=== PATIENT | female | born 1985 | race Caucasian/White ===

== ENCOUNTER 2017-04-05 15:37 | Emergency (ER) | payer SELFPAY ==
[2017-04-05] MEDS ORDERED: KETOROLAC TROMETHAMINE 60 MG/2 ML SDV IM ONE (16:29)
[2017-04-05] MEDS ORDERED: ACETAMINOPHEN 325 MG TABLET PO ONE (16:29)
--- NOTE | 2017-04-05 16:34 | ER Document Report ---
ED Fever - General Chief Complaint: Fever Stated Complaint: BODY ACHES, FEVER Time Seen by Provider: 04/05/17 16:08 Mode of Arrival: Ambulatory Information source: Patient TRAVEL OUTSIDE OF THE [place] IN LAST 30 DAYS: No - HPI Patient complains to provider of: Fever, body aches, nonproductive cough Onset: This morning Onset/Duration: Gradual Quality of pain: Achy Severity: Moderate Pain Level: 3 Associated symptoms: Body/muscle aches, Nonproductive cough, Fever, Weakness Similar symptoms previously: No Recently seen / treated by doctor: No Notes: Patient is a 32-year-old female who is otherwise healthy who presents to the emergency room today complaining of fever with headache and body aches, as well as nonproductive cough, symptoms started earlier today, her 2-1/2-year-old daughter was diagnosed with influenza yesterday and started on Tamiflu, patient is tolerating p.o. intake, denies any stiff neck, no abdominal pain, no diarrhea , denies being , no urinary symptoms - Related Data Allergies/Adverse Reactions: No Known Drug Allergies Allergy (Verified 04/05/17 15:40) Past Medical History - General Information source: Patient - Social History Smoking Status: Never Smoker Family History: Reviewed & Not Pertinent Review of Systems - Review of Systems Constitutional: See HPI EENT: No symptoms reported Cardiovascular: No symptoms reported Respiratory: Cough Gastrointestinal: No symptoms reported Genitourinary: No symptoms reported Female Genitourinary: No symptoms reported Musculoskeletal: No symptoms reported Skin: No symptoms reported Hematologic/Lymphatic: No symptoms reported Neurological/Psychological: Headaches -: Yes All other systems reviewed and negative Physical Exam - Vital signs Vitals: Temp Pulse Resp BP Pulse Ox 99.3 F 122 H 18 152/101 H 99 04/05/17 15:43 04/05/17 15:43 04/05/17 15:43 04/05/17 15:43 04/05/17 15:43 Interpretation: Tachycardic - General General appearance: Alert In distress: None - HEENT Head: Normocephalic, Atraumatic Eyes: Normal Conjunctiva: Normal Cornea: Normal Extraocular movements intact: Yes Eyelashes: Normal Pupils: PERRL Nasal: Normal Pharynx: Erythema. No: Exudate, Potential airway comprom. Neck: Normal - Respiratory Respiratory status: No respiratory distress Chest status: Nontender Breath sounds: Normal Chest palpation: Normal - Cardiovascular Rhythm: Regular Heart sounds: Normal auscultation Murmur: No - Abdominal Inspection: Normal Distension: No distension Bowel sounds: Normal Tenderness: Nontender Organomegaly: No organomegaly - Back Back: Normal, Nontender - Extremities General upper extremity: Normal inspection, Nontender, Normal color, Normal ROM , Normal temperature General lower extremity: Normal inspection, Nontender, Normal color, Normal ROM , Normal temperature, Normal weight bearing. No: Lobo's sign - Neurological Neuro grossly intact: Yes Cognition: Normal Orientation: AAOx4 Hieu Coma Scale Eye Opening: Spontaneous Alexander Coma Scale Verbal: Oriented Hieu Coma Scale Motor: Obeys Commands Alexander Coma Scale Total: 15 Speech: Normal Motor strength normal: LUE, RUE, LLE, RLE Sensory: Normal - Psychological Associated symptoms: Normal affect, Normal mood - Skin Skin Temperature: Warm Skin Moisture: Dry Skin Color: Normal Course - Re-evaluation Re-evalutation: 04/05/17 16:31 Patient is a 32-year-old healthy female who does not smoke, presenting with flulike symptoms that started earlier today, her 2-1/2-year-old daughter was diagnosed with influenza yesterday, she is slightly tachycardic on initial evaluation, but she is tolerating p.o. intake and was given IM Toradol as well as p.o. Tylenol, I discussed influenza testing which recommended against at this point in time as patient's daughter was diagnosed with flu and patient has all the symptoms consistent with flu, she is in agreement with proceeding with influenza treatment at home including supportive care and Tamiflu, patient was advised of the risks and benefits of Tamiflu usage, advised to drink plenty of fluids, get plenty of rest, follow-up with primary care or return if symptoms worsen, patient acknowledges understanding and agreement with this plan - Vital Signs Vital signs: Temp Pulse Resp BP Pulse Ox 99.3 F 122 H 18 152/101 H 99 04/05/17 15:43 04/05/17 15:43 04/05/17 15:43 04/05/17 15:43 04/05/17 15:43 Discharge - Discharge Clinical Impression: Influenza Condition: Stable Disposition: HOME, SELF-CARE Instructions: Acetaminophen, Fever ([facility]), Influenza ([facility]) [id number], Viral Syndrome ([facility]) Additional Instructions: Drink plenty of fluids. Get plenty of rest. Take Tylenol or Motrin as needed for fever or body aches. Follow-up with your primary care provider in 2-3 days. Return to the emergency room immediately if symptoms worsen or any additional concerns. Prescriptions: Oseltamivir Phosphate [Tamiflu 75 mg Capsule] 75 mg PO BID #10 capsule Referrals: LOCALMD,NO [Primary Care Provider] - Follow up as needed
[2017-04-05] MEDS ORDERED: NORMAL SALINE 1000 ML 1,000 ML IV PRN (16:59)
[2017-04-05 17:47] VITALS: BP 146/84
== END 2017-04-05 17:57 | disposition home or self-care (01) ==
LOC: ER 15:37
DX: J11.1 Influenza due to unidentified influenza virus with other respiratory manifestations (principal); R50.9 Fever, unspecified; M79.1 Myalgia; R05 Cough; R53.1 Weakness
CPT/HCPCS: 99283; 96372; 96360; J1885; J7030

== ENCOUNTER 2017-11-07 15:35 | Emergency (ER) | payer SELFPAY ==
[2017-11-07] MEDS ORDERED: IBUPROFEN 600 MG TABLET PO ONE (16:33)
--- NOTE | 2017-11-07 17:03 | RADIOLOGY REPORT (SQ) ---
EXAM DESCRIPTION: FOOT LEFT COMPLETE COMPLETED DATE/TIME: 11/07/2017 4:51 pm REASON FOR STUDY: rolled foot and ankle when missed a step no open or penetrating wound, injury toda y COMPARISON: Left ankle three views same date NUMBER OF VIEWS: Three views. TECHNIQUE: AP, lateral and oblique radiographic images acquired of the left foot. LIMITATIONS: None. FINDINGS: MINERALIZATION: Normal. BONES: No acute fracture or dislocation. No worrisome bone lesions. Small dorsal and plantar calcan eal spurs. JOINTS: No effusions. SOFT TISSUES: Diffuse forefoot soft tissue swelling. No foreign body. OTHER: No other significant finding. IMPRESSION: Forefoot soft tissue swelling without underlying acute fracture TECHNICAL DOCUMENTATION: JOB ID: [id number] [employer]- All Rights Reserved Reading location - IP/workstation name: [email or web address]
--- NOTE | 2017-11-07 17:04 | RADIOLOGY REPORT (SQ) ---
EXAM DESCRIPTION: ANKLE LEFT COMPLETE COMPLETED DATE/TIME: 11/07/2017 4:51 pm REASON FOR STUDY: rolled foot and ankle when missed a step COMPARISON: None. NUMBER OF VIEWS: Three views. TECHNIQUE: AP, lateral, and oblique radiographic images acquired of the left ankle. LIMITATIONS: None. FINDINGS: MINERALIZATION: Normal. BONES: No acute fracture or dislocation. No worrisome bone lesions. JOINTS: There is a small joint effusion. SOFT TISSUES: No soft tissue swelling. No foreign body. OTHER: No other significant finding. IMPRESSION: Small joint effusion. No fracture. TECHNICAL DOCUMENTATION: JOB ID: [id number] [employer]- All Rights Reserved Reading location - IP/workstation name: [email or web address]
--- NOTE | 2017-11-07 17:32 | ER Document Report ---
ED Extremity Problem, Lower - General Chief Complaint: Ankle Pain Stated Complaint: LEFT ANKLE PAIN Time Seen by Provider: 11/07/17 16:26 Mode of Arrival: Ambulatory Information source: Patient Notes: 32-year-old female presented to ED for complaint of pain in her left foot and ankle after she rolled her ankle when stepping wrong off a porch. She states she was helping her sister move a mattress and since her sister was she moved a mattress herself and stepped wrong off the last step. She states this happened about 2 PM. She is able to walk on her foot. She is alert and oriented respirations regular and unlabored speaking in full sentences. TRAVEL OUTSIDE OF THE [place] IN LAST 30 DAYS: No - HPI Patient complains to provider of: Pain, Swelling Location: Ankle, Foot Occurred: This afternoon Where: Other - Sister's friend's house Onset/Duration: Sudden Quality of pain: Achy, Sharp Severity: Moderate Pain Level: 3 Context: Other - Rolled her ankle Recent injury: Yes Associated symptoms: Painful ambulation Exacerbated by: Movement, Walking Relieved by: Elevation, Ice, Rest - Related Data Allergies/Adverse Reactions: No Known Drug Allergies Allergy (Verified 11/07/17 15:41) Past Medical History - General Information source: Patient - Social History Smoking Status: Never Smoker Cigarette use (# per day): No Chew tobacco use (# tins/day): No Smoking Education Provided: No Frequency of alcohol use: Rare Drug Abuse: None Occupation: [employer] Lives with: Family Family History: Reviewed & Not Pertinent Patient has suicidal ideation: No Patient has homicidal ideation: No - Past Medical History Cardiac Medical History: Reports: Hx Hypertension Pulmonary Medical History: Reports: None EENT Medical History: Reports: None Neurological Medical History: Reports: Hx Migraine - Vertigo, Hx Seizures Endocrine Medical History: Reports: None Renal/ Medical History: Reports: None Malignancy Medical History: Reports: None GI Medical History: Reports: None Musculoskeletal Medical History: Reports Hx Musculoskeletal Trauma - Carpal tunnel ganglion cyst Skin Medical History: Reports None Psychiatric Medical History: Reports: Hx Anxiety, Hx Depression Traumatic Medical History: Reports: None Infectious Medical History: Reports: None Past Surgical History: Reports: Hx Oral Surgery - [place] teeth, Hx Orthopedic Surgery - Ganglion cyst removed from bilateral wrist - Immunizations Immunizations up to date: Yes Review of Systems - Review of Systems Constitutional: No symptoms reported EENT: No symptoms reported Cardiovascular: No symptoms reported Respiratory: No symptoms reported Gastrointestinal: No symptoms reported Genitourinary: No symptoms reported Female Genitourinary: No symptoms reported Musculoskeletal: Ankle swelling - Left ankle pain and swelling Skin: No symptoms reported Hematologic/Lymphatic: No symptoms reported Neurological/Psychological: No symptoms reported -: Yes All other systems reviewed and negative Physical Exam - Vital signs Vitals: Temp Pulse Resp BP Pulse Ox 99.0 F 110 H 16 149/93 H 98 11/07/17 15:43 11/07/17 15:43 11/07/17 15:43 11/07/17 15:43 11/07/17 15:43 Interpretation: Normal - General General appearance: Appears well, Alert - HEENT Head: Normocephalic, Atraumatic Eyes: Normal Pupils: PERRL - Respiratory Respiratory status: No respiratory distress Chest status: Nontender Breath sounds: Normal Chest palpation: Normal - Cardiovascular Rhythm: Regular Heart sounds: Normal auscultation Murmur: No - Abdominal Inspection: Normal Distension: No distension Bowel sounds: Normal Tenderness: Nontender Organomegaly: No organomegaly - Back Back: Normal, Nontender - Extremities General upper extremity: Normal inspection, Nontender, Normal color, Normal ROM , Normal temperature General lower extremity: Normal temperature, Normal weight bearing. No: Lobo' s sign Ankle: Tender, Ecchymosis, Edema. No: Abrasion, Deformity, Instability, Laceration, Positive Stock's test, Unable to bear weight Foot: Tender, Ecchymosis, Edema, No evidence of FB. No: Metatarsal compress. pain, Tender 5th metatarsal, Unable to bear weight - Neurological Neuro grossly intact: Yes Cognition: Normal Orientation: AAOx4 [place] Coma Scale Eye Opening: Spontaneous [place] Coma Scale Verbal: Oriented [place] Coma Scale Motor: Obeys Commands Hieu Coma Scale Total: 15 Speech: Normal Motor strength normal: LUE, RUE, LLE, RLE Sensory: Normal - Psychological Associated symptoms: Normal affect, Normal mood - Skin Skin Temperature: Warm Skin Moisture: Dry Skin Color: Normal Course - Vital Signs Vital signs: Temp Pulse Resp BP Pulse Ox 98.0 F 96 16 129/84 H 98 11/07/17 17:42 11/07/17 17:42 11/07/17 17:42 11/07/17 17:42 11/07/17 17:42 - Diagnostic Test Radiology reviewed: Image reviewed, Reports reviewed Procedures - Immobilization Left Ankle Time completed: 17:30 Immobilizer type: Alejandro wrap, Ankle stirrup, Crutches Performed by: PCT Post-Proc Neuro Vasc Exam: Normal Alignment checked and good: Yes Discharge - Discharge Clinical Impression: Left ankle sprain Qualifiers: Encounter type: initial encounter Involved ligament of ankle: unspecified ligament Qualified Code(s): S93.402A - Sprain of unspecified ligament of left ankle, initial encounter Condition: Stable Disposition: HOME, SELF-CARE Instructions: Family Physicians / Practices Additional Instructions: SPRAINED ANKLE: Your sprained ankle results from stretching or tearing of the ligaments which support the ankle. This usually results from twisting the foot inward and under. The ligaments will require time and protection in order to heal properly. Many ankle sprains are quite disabling, and should be taken seriously. The usual treatment for an ankle sprain is cold packs; protection with tape , splints, or wraps; elevation; and staying off the ankle for at least a day. As the ankle improves, you can walk IF it's not painful to bear weight. Sports are best postponed until healing is complete. More serious sprains usually require strengthening exercises after early healing. Your physician has assessed the seriousness of the ligament injury to your ankle. However, the treatment may change, depending on how your ankle progresses. If further exams were recommended, it is important that you follow through. Call the doctor if your foot becomes numb, painful, or severely swollen. ALEJANDRO WRAP: A compression dressing (alejandro wrap) has been placed. This helps hold the area still. It limits swelling and internal bleeding. The wrap should be comfortably snug -- not tight. You should feel a sense of pressure, but not severe pain under the wrap. Unless the physician tells you otherwise, you can adjust the wrap for comfort. If the wrap causes symptoms suggesting it's too tight -- uncomfortable pressure, swelling or discoloration beyond the wrap, numbness, or severe pain - - you must loosen the wrap. If these symptoms don't resolve promptly, return for re-evaluation. ANKLE STIRRUP SPLINT: You are to use an ankle brace called a stirrup splint. This type of brace allows you to place greater stresses on the ankle without risk of re-injury, and is often used for more severe ankle injuries such as avulsion fractures and ligament ruptures. The splint can be worn over a sock or tape. For proper support, wear the splint with a shoe over it. It's important that the splint fit properly. Adjust the heel tension, if needed. If your splint has air bladders, peel back the bottom of each air bladder, then move the Velcro attachment of the heel strap up or down. Air bladder pressure can be adjusted by pulling up the valve at the top, threading the air tube down into the main bladder, then blowing air into the bladder or squeezing it out. The two sides of the stirrup can be moved forward or back on your ankle by changing the attachment of the main straps. If you are unable to use the ankle comfortably in the splint, return for re -evaluation. USE OF CRUTCHES: The doctor has recommended that you not bear weight at this time. You will need to use crutches. Adjust the crutches so the tops come to about two inches under the armpit while you are standing upright. Use your hands -- not your armpits -- to support your weight. To get into a chair, support yourself with one crutch on the injured side. Hold the chair with the other hand, then lower yourself while putting all your weight on the good leg. Going up stairs is `good leg up, step up, then bring up crutches and bad leg.' Down stairs is `bad leg and crutches down, then bring good leg down.' If you develop numbness or swelling in an arm or hand, you are using the crutches incorrectly. Return if you are having any problems with the crutches. ICE & ELEVATION: Apply ice packs frequently against the painful area. Many different schedules are recommended, such as "20 minutes on, 20 minutes off" or "one hour ice, two hours rest." If you need to work, you may need to go longer between ice treatments. You should plan to have the area ice packed AT LEAST one- fourth of the time. The ice should be applied over the wrap, tape, or splint, or over a layer of cloth -- not directly against the skin. Some ice bags have a built-in cloth and can be put directly on the skin. Your injured part should be elevated as much as possible over the next 48 hours. Try to keep the injury above the level of the heart. Avoid use of the injured area. Elevation and rest will decrease the swelling. USE OF [id number] IBUPROFEN: Ibuprofen (Advil, Nuprin, Medipren, Motrin IB) is a medication for fever and pain control. In addition, it has anti- inflammatory effects which may be beneficial, especially in the treatment of injuries. It's best to take ibuprofen with food. Persons with ulcer disease or allergy to aspirin should notify their physician of this before taking ibuprofen. Ibuprofen can be given every four to six hours, for a total of four doses daily. Age Pain or fever dose Antiinflammatory dose 6-8 yr 200 mg (1 tab) 200 mg (1 tab) 9-11 yr 200 mg (1 tab) 200-400 mg (1-2 tab) 11-14 yr 200-400 mg (1-2 tab) 400 mg (2 tab) 15-adult 400 mg (2 tab) 600 mg (3 tab) Acetaminophen Acetaminophen may be taken for pain relief or fever control. It's much safer than aspirin, offering a wider range of "safe" dosages. It is safe during . Some brand names are Tylenol, Panadol, Datril, Anacin 3, Tempra, and Liquiprin. Acetaminophen can be repeated every four hours. The following are maximum recommended dosages: WEIGHT Dose Drops Elixir Chewable( 80mg) (LBS.) drprs=droppers tsp=teaspoon 6 40 mg .4 ml (1/2) 6-11 80 mg .8 ml (full) 1/2 tsp 1 tab 12-16 120 mg 1 1/2 drprs 3/4 tsp 1 1/2 tabs 17-23 160 mg 2 drprs 1 tsp 2 tabs 24-30 240 mg 3 drprs 1 1/2 tsp 3 tabs 30-35 320 mg 2 tsp 4 tabs 36-41 360 mg 2 1/4 tsp 4 1 /2 tabs 42-47 400 mg 2 1/2 tsp 5 tabs 48-53 480 mg 3 tsp 6 tabs 54-59 520 mg 3 1/4 tsp 6 1 /2 tabs 60-64 560 mg 3 1/2 tsp 7 tabs 65-70 600 mg 3 3/4 tsp 7 1 /2 tabs 71-76 640 mg 4 tsp 8 tabs 77-82 720 mg 4 1/2 tsp 9 tabs 83-88 800 mg 5 tsp 10 tabs >89 pounds or adults 650 mg to 900 mg Acetaminophen can be repeated every four hours. Maximum daily dose not to exceed 4000 mg. These maximum recommended dosages are slightly higher than the dosages written on the product container, but these dosages are very safe and well below the toxic dosage for acetaminophen. FOLLOW-UP CARE: If you have been referred to a physician for follow-up care, call the physician s office for an appointment as you were instructed or within the next two days. If you experience worsening or a significant change in your symptoms, notify the physician immediately or return to the Emergency Department at any time for re-evaluation. Prescriptions: Ibuprofen 600 mg PO Q6HP PRN #20 tablet PRN Reason: Forms: Elevated Blood Pressure, Special Work Note, Return to Work Referrals: OMAYRA HERNANDEZ MD [ACTIVE STAFF] - Follow up as needed
[2017-11-07 17:43] VITALS: BP 129/84
== END 2017-11-07 17:47 | disposition home or self-care (01) ==
LOC: ER 15:35
DX: S93.402A Sprain of unspecified ligament of left ankle, initial encounter (principal); S90.30XA Contusion of unspecified foot, initial encounter; M25.572 Pain in left ankle and joints of left foot; M79.672 Pain in left foot; X50.0XXA Overexertion from strenuous movement or load, initial encounter; Y93.89 Activity, other specified; Y92.008 Other place in unspecified non-institutional (private) residence as the place of occurrence of the external cause; I10 Essential (primary) hypertension
CPT/HCPCS: 99283; 73610; 73630; L1902

== ENCOUNTER 2018-04-06 08:11 | Emergency (ER) | payer OTHER ==
[2018-04-06 08:24] VITALS: BP 135/75
--- NOTE | 2018-04-06 09:01 | RADIOLOGY REPORT (SQ) ---
EXAM DESCRIPTION: ELBOW LEFT OVER 2 VIEWS COMPLETED DATE/TIME: 04/06/2018 8:49 am REASON FOR STUDY: Fell on arm at work. Pain with movement. COMPARISON: None. NUMBER OF VIEWS: Four views. TECHNIQUE: AP, lateral, and both oblique radiographic images acquired of the left elbow. LIMITATIONS: None. FINDINGS: MINERALIZATION: Normal. BONES: Nondisplaced radial head fracture. JOINT: Joint effusion. SOFT TISSUES: No soft tissue swelling. No foreign body. OTHER: No other significant finding. IMPRESSION: Nondisplaced radial head fracture. TECHNICAL DOCUMENTATION: JOB ID: [id number] [employer]- All Rights Reserved Reading location - IP/workstation name: [email or web address]
[2018-04-06] MEDS ORDERED: IBUPROFEN 600 MG TABLET PO ONE (09:18)
--- NOTE | 2018-04-06 09:21 | ER Document Report ---
ED Fall - General Chief Complaint: Fall Stated Complaint: FALL/ARM PAIN Time Seen by Provider: 04/06/18 08:45 Notes: 33 female with no past medical history presents for left arm pain after falling at work yesterday. 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 She worked for approximately 1 more hour and when she went to lift a piece of luggage had excruciating pain and had to stop. She is told her employer that if the pain was worse the following morning she was going to go to the hospital. She denies any fevers, chills, shoulder pain, complains of minimal wrist pain, complains of decreased range of motion. She denies any numbness or tingling to her left upper extremity. Not hit her head. TRAVEL OUTSIDE OF THE [place] IN LAST 30 DAYS: No - Related data Allergies/Adverse Reactions: No Known Drug Allergies Allergy (Verified 11/07/17 15:41) Past Medical History - Social History Smoking Status: Never Smoker Family History: Reviewed & Not Pertinent Patient has suicidal ideation: No Patient has homicidal ideation: No - Past Medical History Cardiac Medical History: Reports: Hx Hypertension Neurological Medical History: Reports: Hx Migraine - Vertigo, Hx Seizures Renal/ Medical History: Denies: Hx Peritoneal Dialysis Musculoskeletal Medical History: Reports Hx Musculoskeletal Trauma - Carpal tunnel ganglion cyst Psychiatric Medical History: Reports: Hx Anxiety, Hx Depression Past Surgical History: Reports: Hx Oral Surgery - [place] teeth, Hx Orthopedic Surgery - Ganglion cyst removed from bilateral wrist - Immunizations Immunizations up to date: Yes Physical Exam - Vital signs Vitals: Temp Pulse Resp BP Pulse Ox 97.8 F 94 18 135/75 H 99 04/06/18 08:20 04/06/18 08:20 04/06/18 08:20 04/06/18 08:20 04/06/18 08:20 - Notes Notes: PHYSICAL EXAMINATION: Reviewed vital signs and charting by RN GENERAL: Alert, interacts well. No acute distress. HEAD: Normocephalic, atraumatic. EYES: Pupils equal, round. Extraocular movements intact. ENT: Oral mucosa moist NECK: Full range of motion. Supple. Trachea midline. EXTREMITIES: Moves all 4 extremities spontaneously. No cyanosis. Limited range of motion at the left elbow. Has pain with movement. Acute tenderness to palpation over the radial head and olecranon process. Mild edema lateral left elbow with no ecchymosis BACK: no cervical, thoracic, lumbar midline tenderness. No saddle anesthesia, normal distal neurovascular exam. NEUROLOGICAL:. Normal speech. PSYCH: Normal affect, normal mood. SKIN: Warm, dry, normal turgor. No rashes or lesions noted. Course - Re-evaluation Re-evalutation: 04/06/18 09:22 Overall well-appearing female presents with a left nondisplaced radial head fracture. Good normal distal neurovascular exam. Will place in a sugar tong splint and sling with orthopedic follow-up on Sunday. Motrin 600 mg p.o. 1 time ordered. Patient is stable for discharge. - Vital Signs Vital signs: Temp Pulse Resp BP Pulse Ox 97.8 F 94 18 135/75 H 99 04/06/18 08:20 04/06/18 08:20 04/06/18 08:20 04/06/18 08:20 04/06/18 08:20 Discharge - Discharge Clinical Impression: Swelling Radial head fracture, closed Qualifiers: Encounter type: initial encounter Fracture alignment: nondisplaced Laterality: left Qualified Code(s): S52.125A - Nondisplaced fracture of head of left radius, initial encounter for closed fracture Condition: Good Disposition: HOME, SELF-CARE Instructions: Radial Head Fracture ([facility]) Additional Instructions: You were seen in the emergency department this morning for a radial head fracture of your right arm. We have placed you in a splint and a sling. Please follow-up with orthopedics on Sunday. He can call them at 8:00 in the morning when they open. You can take Motrin 600 mg every 6 hours with food or milk and/or Tylenol 1000 mg every 6 hours for pain as needed. It is recommended to take the Motrin [id number] for the next several days. Please ice your elbow 20 minutes on every couple of hours for the next 24 hours at least. If yo u develop fever, your finger start to turn blue, or you feel you are not getting circulation to your arm it is possible that the splint might be a little too tight and you can adjust the Alejandro wrap. If that does not help then it could be concern for circulation issue and you should please return to the emergency department. Forms: Return to Work Referrals: [facility] [Provider Group] - Follow up tomorrow (Follow-up Sunday, April 08)
== END 2018-04-06 09:35 | disposition home or self-care (01) ==
LOC: ER 08:11
DX: S52.125A Nondisplaced fracture of head of left radius, initial encounter for closed fracture (principal); W01.0XXA Fall on same level from slipping, tripping and stumbling without subsequent striking against object, initial encounter; Y93.89 Activity, other specified; Y92.520 Airport as the place of occurrence of the external cause; Y99.0 Civilian activity done for income or pay; I10 Essential (primary) hypertension
CPT/HCPCS: 99283